=== PATIENT | female | born 1960 | race Caucasian/White ===

== ENCOUNTER → 2016-08-19 | Day surgery (SDC) | payer OTHER ==
[~2016-08-19] MED LIST: Lactated Ringers 1,000 ML IV SCH; Meperidine PF 50 MG/ML Syringe IV ONE; Meperidine PF 50 MG/ML Syringe ONE; Midazolam 1 MG/ML 2 ML SDV IV ONE; Midazolam 1 MG/ML 2 ML SDV ONE
[2016-08-19 12:41] VITALS: BP 95/63
--- NOTE | 2016-08-20 07:46 | OR ---
DATE OF OPERATION: 08/19/2016 PREOPERATIVE DIAGNOSIS: COLON SCREENING. POSTOPERATIVE DIAGNOSIS: POLYP, COLON AT 50 CM LEVEL, DESCENDING COLON. SURGEON: Lloyd Johnson MD OPERATION PERFORMED: Colonoscopy and polypectomy using snare technique. ANESTHESIA: IV sedation, 50 mg of Demerol and 5 mg Versed. DESCRIPTION OF PROCEDURE: After the patient was placed in left lateral position, colonoscope was introduced into anal canal from where it was maneuvered into rectum, then into sigmoid colon, gradually up the descending colon, across the splenic flexure, into transverse colon, across the hepatic flexure, into ascending colon, down to cecum. Multiple photographs were taken and colonoscope was gradually withdrawn. At 50 cm level, there was a polyp present, photographs of it were taken. Using snare technique, it was removed and taken as specimen. Other than this polyp, no other pathology was seen. The patient tolerated the procedure well and left the operating room in satisfactory condition. JOAQUIN/REENA /[id number]
== END ==
LOC: CC.SDS 10:21
PROVIDERS: ATTEND Surgery
DX: Z12.11 Encounter for screening for malignant neoplasm of colon (principal); D12.6 Benign neoplasm of colon, unspecified; Z79.899 Other long term (current) drug therapy; Z90.710 Acquired absence of both cervix and uterus; Z98.890 Other specified postprocedural states; F17.210 Nicotine dependence, cigarettes, uncomplicated
CPT/HCPCS: 45385; J2175; J2250; J7120